=== PATIENT | female | born 1960 | race Caucasian/White ===

== ENCOUNTER → 2016-11-14 | Outpatient (CLI) | payer BC | LOC: MC.RAD 09:23 | DX: Z12.31 Encounter for screening mammogram for malignant neoplasm of breast (principal); Z80.3 Family history of malignant neoplasm of breast ==

== ENCOUNTER 2017-02-22 09:28 | Outpatient (RCR) | payer OTHER | END 2017-03-01 10:08 | LOC: WSPT 09:28 | DX: Z02.71 Encounter for disability determination (principal); M53.3 Sacrococcygeal disorders, not elsewhere classified; M79.604 Pain in right leg ==

== ENCOUNTER → 2017-02-22 | Outpatient (CLI) | payer OTHER | LOC: COL.RAD 11:05 | DX: M48.07 Spinal stenosis, lumbosacral region (principal); M47.816 Spondylosis without myelopathy or radiculopathy, lumbar region; M47.814 Spondylosis without myelopathy or radiculopathy, thoracic region ==

== ENCOUNTER → 2017-11-16 | Outpatient (CLI) | payer MEDICARE, BC | LOC: MC.RAD 10:38 | DX: Z12.31 Encounter for screening mammogram for malignant neoplasm of breast (principal) ==

== ENCOUNTER → 2018-11-30 | Outpatient (CLI) | payer MEDICARE, BC | LOC: MC.RAD 08:47 | DX: Z12.31 Encounter for screening mammogram for malignant neoplasm of breast (principal) ==